=== PATIENT | female | born 1975 | race Caucasian/White ===

== ENCOUNTER 2024-10-29 09:04 | Outpatient (OUT) | payer MEDICARE, MEDICAID, SELFPAY | END 2024-10-29 09:05 | disposition home or self-care (01) | LOC: LAB 09:16 | PROVIDERS: Visit Provider Nurse Practitioner Family | DX: E78.5 Hyperlipidemia, unspecified (principal); E11.9 Type 2 diabetes mellitus without complications; I10 Essential (primary) hypertension; Z83.3 Family history of diabetes mellitus | CPT/HCPCS: 36415; 86337; 86341 ==